=== PATIENT | female | born 1975 | race Caucasian/White ===

== ENCOUNTER 2022-02-09 16:10 | Emergency (ER) | payer OTHER, SELFPAY ==
[2022-02-09 16:19] VITALS: BP 112/59; PULSE 76; RESP 20; TEMP 36.4; O2SAT 99; BMI 22.6
--- NOTE | 2022-02-09 16:41 | PC.NURSE ---
called poison control. pt splashed hydraulic fluid in the face and mouth. pants and top are wet. no blisters.wray or redness noted. pt irrigated her eyes with her water in her container. Poison control recommended that she decon with a shower. change out of her clothes . 5 mins eye irrigation with floursein stain. treating it as a hydro carbon exposure
[2022-02-09 18:28] VITALS: BP 113/56; PULSE 71; TEMP 36.7; O2SAT 98
--- NOTE | 2022-02-09 18:38 | ED.ALCOHOL ---
HPI - Alcohol <Len Howell PA-C - Last Filed: 02/09/22 18:47> General Chief Complaint: Toxicology Problem Stated Complaint: Hydraulic fluid in face/mouth Time Seen by Provider: 02/09/22 16:55 Source: patient Mode of arrival: Family Vehicle History of Present Illness HPI narrative: Patient is a 46-year-old female presents emergency room today after having hydraulic fuel from a boat she was working on spray int her face. States she reported to the emergency room because she lives in [place] and did not want to drive that far before she cleanse herself of the fluid. States the fluid mainly entered her nose and her mouth. A little entered into her eyes. Had to remove her contacts but states no changes in her normal vision without her contacts. Also denies any nausea vomiting shortness of breath chest pain wheezes other related concerns. Related Data Allergies Allergy/AdvReac Type Severity Reaction Status Date / Time Penicillins Allergy Vomiting Verified 02/09/22 16:19 Sulfa (Sulfonamide Allergy Vomiting Verified 02/09/22 16:19 Antibiotics) Review of Systems <Len Howell PA-C - Last Filed: 02/09/22 18:47> Review of Systems Narrative: R.O.S.: General: No fever, chills or fatigue. Cardiovascular: No chest pain or palpitations Respiratory: No S.O.B. HEENT: No congestion, ear pain, rhinorrhea, sore throat or tinnitus Gastrointestinal: No nausea or vomiting Skin: Complaint of hydraulic fluid spreading into her face. Musculoskeletal: No pain in muscles or joints, no limitation of range of motion, no paresthesia or numbness. ?? Neurological: Awake, alert and in not apparent distress. No Headaches, changes in vision or other related neurological concerns. Patient History <TRUPTI Sanderson Last Filed: 02/09/22 18:47> Social History Smoking Status: Never smoker Smoking Status: Never smoker alcohol intake frequency: 0-2 drinks per day Substance Use Type: does not use Exam <TRUPTI Sanderson Last Filed: 02/09/22 18:47> Narrative Exam Narrative: Physical Exam: ? General: normal appearance, well developed, well nourished, alert, and awake. Not in acute distress. ? Head: Normocephalic, no lesions. Chest: Lungs CTAB, no rales, rhonchi or wheezes. ?? Heart: RRR, no murmurs, rubs or gallops. Eyes: PERRLA, EOM's full, conjunctivae clear. ? Neuro: Physiological, no localizing findings, CN3-12 intact. ?? Extremities: Warm, well perfused, FROM, no deformities, no edema. ?? Skin: Normal, no rashes, no lesions noted. ?? PSYCHIATRIC: The mood is good, no blunted affect. Speech is clear. Thought process is linear, thought content is appropriate. The voice is without significant inflection. Gastrointestinal: Soft; NT; ND; Pos BS with Neg. rebound tenderness. No scars or major deformities noted on Visual Inspection. Initial Vital Signs Initial Vital Signs: Vital Signs Temperature 97.5 F L 02/09/22 16:19 Pulse Rate 76 02/09/22 16:19 Respiratory Rate 20 02/09/22 16:19 Blood Pressure 112/59 L 02/09/22 16:19 Pulse Oximetry 99 02/09/22 16:19 Oxygen Delivery Method 02/09/22 16:19 <Kim Trevino DO - Last Filed: 02/10/22 05:44> Initial Vital Signs Initial Vital Signs: Vital Signs Temperature 97.5 F L 02/09/22 16:19 Pulse Rate 76 02/09/22 16:19 Respiratory Rate 20 02/09/22 16:19 Blood Pressure 112/59 L 02/09/22 16:19 Pulse Oximetry 99 02/09/22 16:19 Oxygen Delivery Method 02/09/22 16:19 <Elvira Fuentes MD - Last Filed: 02/11/22 11:41> Initial Vital Signs Initial Vital Signs: Vital Signs Temperature 97.5 F L 02/09/22 16:19 Pulse Rate 76 02/09/22 16:19 Respiratory Rate 20 02/09/22 16:19 Blood Pressure 112/59 L 02/09/22 16:19 Pulse Oximetry 99 02/09/22 16:19 Oxygen Delivery Method 02/09/22 16:19 Course <Len Howell PA-C - Last Filed: 02/09/22 18:47> Vital Signs Vital signs: Vital Signs - 8 hr 02/09/22 16:19 02/09/22 18:28 Temperature 97.5 F L 98.0 F Pulse Rate 76 71 Respiratory Rate 20 Blood Pressure 112/59 L 113/56 L Pulse Oximetry 99 98 Oxygen Delivery Method Room Air Room Air <Kim Trevino DO - Last Filed: 02/10/22 05:44> Vital Signs Vital signs: Vital Signs - 8 hr 02/09/22 16:19 02/09/22 18:28 Temperature 97.5 F L 98.0 F Pulse Rate 76 71 Respiratory Rate 20 Blood Pressure 112/59 L 113/56 L Pulse Oximetry 99 98 Oxygen Delivery Method Room Air Room Air <Elvira Fuentes MD - Last Filed: 02/11/22 11:41> Vital Signs Vital signs: Vital Signs - 8 hr 02/09/22 16:19 02/09/22 18:28 Temperature 97.5 F L 98.0 F Pulse Rate 76 71 Respiratory Rate 20 Blood Pressure 112/59 L 113/56 L Pulse Oximetry 99 98 Oxygen Delivery Method Room Air Room Air MDM - Alcohol <Len Howell PA-C - Last Filed: 02/09/22 18:47> MDM Narrative Medical decision making narrative: Patient is 46-year-old female who presents to the emergency room today after having hydraulic fluid spine read into her face. Discharge Plan Departure Patient Disposition: Home Clinical Impression: Skin abnormalities Instructions: Skin Self-Exam (SSE), DI for Contact Dermatitis Activity Restrictions/Additional Instructions: *You have been diagnosed with exposure to chemicals her skin. Physical exam is not revealing any concerns post exposure. Please control has been notified and a suggestion tight against any further concerns arise. Please return to the emergency room should any emergent concerns arise. [ ] *What to do: *Please continue to take your regular medications as directed. [ ] New medication prescriptions sent to your pharmacy: [ ] [ ] New medication written as a paper prescription [x] No new medications given *Please follow up with your primary care provider in 2-3 days, call for an appointment. Let them know you were seen in the Emergency Department and that we ask that you be seen in follow up. We will electronically transmit a record of today's note if your PCP is in our system *If you do not have a primary care provider please contact the [facility] Resource line at [phone]. They will ask some questions about your medical history and help get you set up with a doctor in the community. *Return to Emergency Department if you should have any new, worsening or concerning symptoms, such as [fever greater than 101 F, shaking chills, worsening pain, persistent vomiting or other bothersome symptoms] Visit Report Forms: Patient Portal/API <Kim Trevino DO - Last Filed: 02/10/22 05:44> Cosign ED Attending Oneyda Attestation: Patient case was actually discussed with Dr. Fuentes not myself. Although I was available in the department. <Elvira Fuentes MD - Last Filed: 02/11/22 11:41> Cosign ED Attending Oneyda Attestation: I was immediately available in the department for consultation throughout this patient's visit. I agree with documentation as above. Elvira Fuentes MD
== END 2022-02-09 19:23 | disposition home or self-care (01) ==
PROVIDERS: Emergency Provider Physician Assistant
DX: L25.3 Unspecified contact dermatitis due to other chemical products (principal)
CPT/HCPCS: 99283